=== PATIENT | female | born 1990 | race African-American/Black ===

== ENCOUNTER 2016-06-30 18:04 | Emergency (ER) | payer MEDICAID ==
[2016-06-30 18:30] VITALS: BP 129/79
--- NOTE | 2016-06-30 20:30 | Emergency Department Report ---
HPI - General Chief Complaint: Upper Respiratory Infection Time Seen by Provider: 06/30/16 20:00 - HPI HPI: Patient here reports that she has a cough for 2 days. Denies any shortness of breath. She has some chest tightness and wheezing. She says she had no relief with [id number] medication and Robitussin. Denies any fever or chills. Denies any pain. Denies any shortness of breath. Reports nasal congestion and runny nose. She denies any medical problems. Denies any sore throat. ED Past Medical Hx - Past Medical History Previous Medical History?: Yes Additional medical history: vaginal dleivery x 2 - Surgical History Past Surgical History?: No - Family History Family history: no significant - Social History Smoking Status: Never Smoker Substance Use Type: None, Non Opiate Pain, Other - Medications Home Medications: Home Medications Medication Instructions Recorded Confirmed Last Taken Type Albuterol Sulfate [Ventolin HFA] 2 puff IH Q4H PRN #1 hfa.aer.ad 06/30/16 Unknown Rx Cetirizine HCl [ZyrTEC] 10 mg PO QDAY #14 tabcap 06/30/16 Unknown Rx guaiFENesin/CODEINE [Robitussin AC] 10 ml PO QHS PRN #70 ml 06/30/16 Unknown Rx predniSONE [Deltasone] 50 mg PO QDAY #5 tab 06/30/16 Unknown Rx ED Review of Systems ROS: Stated complaint: COUGHING/CHEST PAIN Other details as noted in HPI Comment: All other systems reviewed and negative Constitutional: denies: chills, fever ENT: congestion. denies: ear pain, throat pain Respiratory: cough. denies: shortness of breath, SOB with exertion, SOB at rest , stridor Cardiovascular: denies: chest pain, palpitations, dyspnea on exertion, edema Gastrointestinal: denies: abdominal pain, nausea, vomiting Musculoskeletal: denies: back pain, arthralgia Skin: denies: rash Neurological: denies: headache, numbness, paresthesias Physical Exam - Physical Exam Vital Signs: Vital Signs 06/30/16 18:27 Temperature 98.9 F Pulse Rate 102 H Respiratory 20 Rate Blood Pressure 129/79 O2 Sat by Pulse 98 Oximetry Vital Signs 06/30/16 06/30/16 06/30/16 18:27 20:39 20:46 Temperature 98.9 F Pulse Rate 102 H Pulse Rate [ 109 H 109 H Posterior Bilateral Throughout] Respiratory 20 Rate Respiratory 21 21 Rate [Posterior Bilateral Throughout] Blood Pressure 129/79 O2 Sat by Pulse 98 Oximetry Vital Signs 06/30/16 06/30/16 06/30/16 18:27 20:39 20:46 Temperature 98.9 F Pulse Rate 102 H Pulse Rate [ 109 H 109 H Posterior Bilateral Throughout] Respiratory 20 Rate Respiratory 21 21 Rate [Posterior Bilateral Throughout] Blood Pressure 129/79 O2 Sat by Pulse 98 Oximetry 06/30/16 21:41 Temperature Pulse Rate 98 H Pulse Rate [ Posterior Bilateral Throughout] Respiratory Rate Respiratory Rate [Posterior Bilateral Throughout] Blood Pressure O2 Sat by Pulse Oximetry General: This is a 25-year-old female well-nourished well-developed in no acute distress. Physical Exam: Head: Normocephalic atraumatic Mouth: Moist, no pharyngeal exudate or erythema. Uvula is midline and oral airway is patent. No gingival enlargement or dental tenderness. No facial swelling. No peritonsillar abscesses. Neck: Supple, no C-spine tenderness, no tracheal deviation. Nontender to palpate. no adenopathy Ears: Bilateral TMs congested without erythema .bilateral EAC without any redness swelling or drainage Eyes: Bilateral pupils equal and reactive to light, bilateral EOM intact. Bilateral sclera and conjunctiva without injection. Normal accommodation Nose: Mucosa moist, positive congestion no erythema. Positive clear drainage. maxillary and frontal sinus non-tender to palpate. Lungs: wheezing bilaterally upper lung rodriguez, no rhonchi or rales. Normal work of breathing extremity; No CCE. +2 pulses. No neurovascular compromise Cardiovascular: S1-S2, tachycardic at 102 ,regular rhythm. No murmurs. Skin: clean Dry and intact no rash no lesions Psych: Normal mood and behavior ED Course Vital Signs 06/30/16 18:27 Temperature 98.9 F Pulse Rate 102 H Respiratory 20 Rate Blood Pressure 129/79 O2 Sat by Pulse 98 Oximetry Vital Signs 06/30/16 06/30/16 06/30/16 18:27 20:39 20:46 Temperature 98.9 F Pulse Rate 102 H Pulse Rate [ 109 H 109 H Posterior Bilateral Throughout] Respiratory 20 Rate Respiratory 21 21 Rate [Posterior Bilateral Throughout] Blood Pressure 129/79 O2 Sat by Pulse 98 Oximetry 06/30/16 21:41 Temperature Pulse Rate 98 H Pulse Rate [ Posterior Bilateral Throughout] Respiratory Rate Respiratory Rate [Posterior Bilateral Throughout] Blood Pressure O2 Sat by Pulse Oximetry - Reevaluation(s) Reevaluation #1: 06/30/16 21:44 Patient given Solu-Medrol 125 mg IM, Xopenex 1.25 mg and Atrovent 0.5 mg nebulizer. She reports that she was feeling much better 06/30/16 21:45 ED Medical Decision Making - Radiology Data Radiology results: report reviewed Chest x-ray revealed no acute cardiopulmonary processes. - Medical Decision Making ED course: Patient with acute bronchitis and cough. Chest revealed no acute cardiopulmonary processes.Patient given Solu-Medrol 125 mg IM, Xopenex 1.25 mg and Atrovent 0.5 mg nebulizer. She reports that she was feeling much better. Upon reevaluation lung sounds without any wheezing. Her heart rate is below 100. I discussed diagnosis and treatment plan the patient and she is in agreement. Patient discharged home with family with prescription for Ventolin HFA, prednisone, guaifenessen with codeine and Zyrtec. I also discussed the patient did a chest x-ray revealed no acute cardiopulmonary findings. Critical care attestation.: If time is entered above; I have spent that time in minutes in the direct care of this critically ill patient, excluding procedure time. ED Disposition Clinical Impression: Cough Acute bronchitis Qualifiers: Bronchitis organism: unspecified organism Qualified Code(s): J20.9 - Acute bronchitis, unspecified Disposition: DISCHARGED TO HOME OR SELFCARE Is pt being admited?: No Does the pt Need Aspirin: No Condition: Stable Instructions: Acute Bronchitis (ED), Acute Cough (ED) Additional Instructions: Please follow-up with your primary care physician in 2-3 days and if you do not have one follow-up at [facility]. Please take medication as prescribed. I cannot take cough medicine a few driving or operating heavy machinery as this medication cause drowsiness. Prescriptions: guaiFENesin/CODEINE [Robitussin AC] 10 ml PO QHS PRN #70 ml PRN Reason: Cough Albuterol Sulfate [Ventolin HFA] 2 puff IH Q4H PRN #1 hfa.aer.ad PRN Reason: WHEEZING AND COUGH Cetirizine HCl [ZyrTEC] 10 mg PO QDAY #14 tabcap predniSONE [Deltasone] 50 mg PO QDAY #5 tab Referrals: PRIMARY CARE, [Primary Care Provider] - 2-3 Days [facility] [Outside] - 2-3 Days Forms: Work/School Release Form(ED)
[2016-06-30] MEDS ORDERED: XOPENEX IH ONE (20:31)
[2016-06-30] MEDS ORDERED: ATROVENT IH ONE (20:31)
--- NOTE | 2016-06-30 21:30 | XRay Report ---
FINAL REPORT PROCEDURE: XR CHEST ROUTINE 2V TECHNIQUE: PA and lateral chest radiographs were obtained. CPT 17598 HISTORY: coughing COMPARISON: No prior studies are available for comparison. FINDINGS: Heart: Normal. Mediastinum/Vessels: Normal. Lungs/Pleural space: Normal. Bony thorax: No acute osseous abnormality. Other: IMPRESSION: Normal examination.
== END 2016-06-30 22:00 | disposition home or self-care (01) ==
LOC: ED 18:04
DX: J20.9 Acute bronchitis, unspecified (principal); R05 Cough
CPT/HCPCS: 71020; 94640; 96372; 99283; J2930